=== PATIENT | female | born 1945 | race Caucasian/White ===

== ENCOUNTER 2020-07-02 21:45 | Inpatient (IN) | payer OTHER, SELFPAY ==
[2020-07-02] VITALS (14 sets, daily range): BP systolic 143–170; BP diastolic 32–55; PULSE 74–89; RESP 13–19; TEMP 36.8; O2SAT 96–100
--- NOTE | 2020-07-02 22:00 | RT.EKG_ITS ---
APPROVED REPORT Exam: Resting ECG Reason for Exam: weakness Patient Location: E HR:77 bpm ECG Measurements Heart Rate 77 AXIS DE 62 P 0 QRSd 98 QRS -25 QT 436 T 27 QTc 495 Conclusion Sinus rhythm...normal P axis, V-rate 60- 99
[2020-07-02 22:23] LABS: Abs Immature Grans 0.04 10^3/uL (0.0-0.06); Absolute Basophil Count 0.03 10^3/uL (0.0-0.2); Absolute Lymphocyte Count 1.29 10^3/uL (1.2-3.4); Absolute Neutrophil Count 3.92 10^3/uL (1.2-6.7); Basophils % 0.5; Eosinophils % 1.7; Immature Grans % 0.7; Lymphocytes % 21.6; MCH 20.3 pg (27.0-33.0); MCV 75.4 fL (80-95); MPV 9.8 fL (8.0-11.0); Neutrophils % 65.5; Nucleated RBC 1 %; Platelet Count 273 10^3/uL (130-400); RBC 2.36 10^6/uL (3.93-5.22); RDW 17.9 % (11.7-14.6); RDW-SD 48.5 fL; WBC 5.98 10^3/uL (4.4-10.8)
[2020-07-02 22:41] LABS: Prothrombin Time 10.2 sec (9.3-11.0)
[2020-07-02 22:44] LABS: ALT 15 U/L (14-59); AST 22 U/L (15-37); Albumin 3.5 g/dL (3.4-5.0); Alkaline Phosphatase 58 U/L (46-116); BUN 14 mg/dL (7-18); Bilirubin, Total 0.3 mg/dL (0.2-1.0); CREATININE 0.9 mg/dL (0.55-1.02); Calcium 8.9 mg/dL (8.5-10.1); Chloride 100 mmol/L (98-107); Glucose 104 mg/dL (74-106); Potassium 3.6 mmol/L (3.5-5.1); Sodium 135 mmol/L (136-145); Total Protein 7.6 g/dL (6.4-8.2); Troponin I < 0.05 ng/mL (<0.06)
[2020-07-02 22:45] LABS: HGB 4.8 g/dL (11.2-15.7)
[2020-07-02 22:46] LABS: HCT 17.8 % (36.0-46.0)
[2020-07-02 22:47] LABS: Anisocytosis 3+; Diff Comment RBC Morph Reviewed; Hypochromasia 3+; Microcytosis 2+
--- NOTE | 2020-07-02 23:01 | ED.GENADUL_ITS ---
Discharge Plan Disposition Patient Disposition: [facility] INPATIENT Condition: Serious Discharge Details Clinical Impression: CVA (cerebral vascular accident), Anemia Admit Date/Time: 07/03/20 00:50 Admit Provider: Mark Anand Attending Provider: Mark Anand Primary Care Provider: Neli,Local ED Provider: Chaim Barboza Discharge Data Discharge Date/Time-TO BE ENTERED AT DEPARTURE: 07/03/20 02:00 Medical Decision Making <Forest Francisco MD - Last Filed: 07/07/20 22:28> 2315 -- 75-year-old female with history of TIA, anemia from vitamin B12 deficiency in the past, here today with 2 to 3 days of worsening left upper extremity weakness with now severe paralysis and left upper extremity as well as mild left facial weakness. Patient also with diminished pulses on the right compared to left with significantly lower blood pressure right compared to left arm. Patient found to be severely anemic on routine labs by PCP. Consider aortic dissection versus CVA versus symptomatic anemia versus other. Plan to obtain stat CT of the head, CTA of the brain, neck and thorax/abdomen. Screening ECG was reviewed and interpreted by me: Please see report. Normal sinus 77 bpm, no STEMI. --Labs reviewed and hemoglobin is 4.8. I will give 2 units of PRBCs. Patient provided informed consent to blood transfusion 2348 -- Rectal exam performed and heme negative. Lab Data Lab results reviewed: Yes I reviewed the patient's lab results. Labs: Laboratory Tests Range/Units 07/02/20 07/02/20 07/02/20 22:10 22:10 22:10 WBC (4.4-10.8) 10^3/uL 5.98 RBC (3.93-5.22) 10^6/uL 2.36 L Hgb (11.2-15.7) g/dL 4.8 L* Hct (36.0-46.0) % 17.8 L* MCV (80-95) fL 75.4 L MCH (27.0-33.0) pg 20.3 L MCHC (32.0-36.0) % 27.0 L RDW (11.7-14.6) % 17.9 H Plt Count (130-400) 10^3/uL 273 MPV (8.0-11.0) fL 9.8 Immature Gran % 0.7 Neutrophils % 65.5 Lymphocytes % 21.6 Monocytes % 10.0 Eosinophils % 1.7 Basophils % 0.5 Nucleated RBC % % 1 Absolute Neutrophils (1.2-6.7) 10^3/uL 3.92 Absolute Lymphocytes (1.2-3.4) 10^3/uL 1.29 Absolute Monocytes (0.1-0.8) 10^3/uL 0.60 Absolute Eosinophils (0.0-0.7) 10^3/uL 0.10 Absolute Basophils (0.0-0.2) 10^3/uL 0.03 RBC Morphology See below Hypochromasia 3+ Anisocytosis 3+ Microcytosis 2+ PT (9.3-11.0) sec 10.2 INR (0.9-1.1) 1.0 Sodium (136-145) mmol/L 135 L Potassium (3.5-5.1) mmol/L 3.6 Chloride (98-107) mmol/L 100 Carbon Dioxide (21.0-32.0) mmol/L 22.0 Anion Gap (3-11) mmol/L 13.0 H BUN (7-18) mg/dL 14 Creatinine (0.55-1.02) mg/dL 0.9 Estimated GFR/1.73 m2 (mL/min/1.73m2) >= 60.00 Glucose (74-106) mg/dL 104 Calcium (8.5-10.1) mg/dL 8.9 Total Bilirubin (0.2-1.0) mg/dL 0.3 AST (15-37) U/L 22 ALT (14-59) U/L 15 Alkaline Phosphatase (46-116) U/L 58 Troponin I (<0.06) ng/mL < 0.05 Total Protein (6.4-8.2) g/dL 7.6 Albumin (3.4-5.0) g/dL 3.5 Patient ABO/Rh Antibody Screen Crossmatch Range/Units 07/02/20 22:10 WBC (4.4-10.8) 10^3/uL RBC (3.93-5.22) 10^6/uL Hgb (11.2-15.7) g/dL Hct (36.0-46.0) % MCV (80-95) fL MCH (27.0-33.0) pg MCHC (32.0-36.0) % RDW (11.7-14.6) % Plt Count (130-400) 10^3/uL MPV (8.0-11.0) fL Immature Gran % Neutrophils % Lymphocytes % Monocytes % Eosinophils % Basophils % Nucleated RBC % % Absolute Neutrophils (1.2-6.7) 10^3/uL Absolute Lymphocytes (1.2-3.4) 10^3/uL Absolute Monocytes (0.1-0.8) 10^3/uL Absolute Eosinophils (0.0-0.7) 10^3/uL Absolute Basophils (0.0-0.2) 10^3/uL RBC Morphology Hypochromasia Anisocytosis Microcytosis PT (9.3-11.0) sec INR (0.9-1.1) Sodium (136-145) mmol/L Potassium (3.5-5.1) mmol/L Chloride (98-107) mmol/L Carbon Dioxide (21.0-32.0) mmol/L Anion Gap (3-11) mmol/L BUN (7-18) mg/dL Creatinine (0.55-1.02) mg/dL Estimated GFR/1.73 m2 (mL/min/1.73m2) Glucose (74-106) mg/dL Calcium (8.5-10.1) mg/dL Total Bilirubin (0.2-1.0) mg/dL AST (15-37) U/L ALT (14-59) U/L Alkaline Phosphatase (46-116) U/L Troponin I (<0.06) ng/mL Total Protein (6.4-8.2) g/dL Albumin (3.4-5.0) g/dL Patient ABO/Rh A Positive Antibody Screen Negative Crossmatch See Detail <Chaim Barboza MD - Last Filed: 07/03/20 01:01> Patient signed out to me pending read of CT scan. She had presented with 2 to 3-day history of left upper extremity neurologic changes as well as hemoglobin found to be 4 today by PCP. Hemoglobin confirmed to be low and RBCs ordered. First unit is running currently. CT scan of the head shows evidence of acute infarct right occipital and right parietal lobe. CTA head and neck negative for any large vessel occlusion or dissection. CT chest abdomen negative for PE or dissection. Significant and at times occlusive plaque in various vessels likely accounting for pulse discrepancy in the upper extremities. Case discussed with hospitalist, Dr. Anand. Since no evidence of active bleeding and per Dr. Francisco negative Hemoccult on the stool, will give aspirin to treat for she acute stroke. Discussed CODE STATUS with patient and confirmed full code. Lab Data Lab results reviewed: Yes I reviewed the patient's lab results. HPI <Forest Francisco MD - Last Filed: 07/07/20 22:28> General Mode of arrival: ambulatory . Date/Time Provider Initiated Documentation: 07/02/20 21:46 . Limitations to Documentation: no limitations . Information obtained by: patient . HPI Narrative: 75-year-old female with prior history of TIA, hypertension, tobacco use disorder, anemia due to vitamin B12 deficiency in the past, peripheral vascular disease, presents today at the prompting of her primary care physician for low hemoglobin and new weakness of her left upper extremity. Patient notes that she presented to her primary care physician office today for checkup but she was concerned with weakness in her arm. She states she has had worsening weakness in her left arm over the past 2 to 3 days. Weakness is now severe and constant with no modifiers. She has associated numbness in the left arm as well patient denies headache. She denies any other weakness. Regarding her anemia, routine labs were checked today and patient was noted to have a hemoglobin of 4, it was not clear to the primary care physician as to the etiology for anemia. Related Data Home Medications Medication Instructions Recorded Confirmed budesonide 3 mg PO DAILY 07/02/20 07/02/20 diphenhydramine HCl [Benadryl] 25 mg PO DAILY 07/02/20 07/02/20 cyanocobalamin (vitamin B-12) 1,000 mcg PO DAILY 07/03/20 07/03/20 [Vitamin B-12] Allergies Allergy/AdvReac Type Severity Reaction Status Date / Time Penicillins Allergy Intermediate Swelling/Ed Unverified 07/02/20 22:06 tino Sulfa (Sulfonamide Allergy Intermediate Swelling/Ed Unverified 07/02/20 22:06 Antibiotics) tino doxycycline Allergy Mild Other (See Unverified 07/02/20 22:06 Comment) General Stated Complaint: Vascular CHERRI: 2 Review of Systems <Forest Francisco MD - Last Filed: 07/07/20 22:28> All systems reviewed & are unremarkable except as noted in HPI and below Constitutional Constitutional: Denies fever(s) and Reports lethargy Cardiovascular Cardiovascular: Denies chest pain Musculoskeletal Musculoskeletal: Reports back pain (Patient notes chronic pain across her back that she attributes to arthritis) PFSH <Forest Francisco MD - Last Filed: 07/07/20 22:28> Medical History (Updated 07/03/20 @ 18:50 by Eileen Grubbs MD) Colitis Smoker TIA (transient ischemic attack) Social History (Updated 07/03/20 @ 07:09 by Mark Anand) Smoking/Tobacco Use Status: Current every day Tobacco Type: cigarettes Smoking risk assessment performed?: Yes Alcohol Intake: current Alcohol Intake frequency: a few times a month Substance use type: marijuana Details: CBD, THC oil Do you feel safe at home: Yes Additional Social history: Lives [facility]) and daughter's Exam <Forest Francisco MD - Last Filed: 07/07/20 22:28> Const General: cooperative and no acute distress HENMT Head: normocephalic and atraumatic Mouth: moist mucous membranes Eyes Conjunctivae: normal conjunctivae Sclera: normal sclerae EOM: EOM intact bilaterally Neck Neck: trachea midline and supple Resp Auscultation: clear to auscultation bilaterally, no rales, no rhonchi and no wheezes Cardio Rate: regular rate and not tachycardic Rhythm: regular rhythm Pulses: radial pulses present on the right (trace) and on the left 2+ GI Palpation: soft, not firm, no guarding, no masses, not rigid and nontender Skin General skin exam: no rashes or lesions noted Neuro General: patient alert, patient awake and patient oriented x3 Cranial Nerves: PERRL, accommodation normal, EOM intact bilaterally, no nystagmus, facial strength abnormal, tongue midline, able to elevate shoulders bilaterally and symmetric palate elevation Cognition: normal cognition Speech: speech normal Motor: other (0/5 strength left upper extremity, 5/5 other ext) Sensory Exam: upper extremity (Patient has diminished sensation left upper extremity compared to right) Extrem General: no edema Psych Appearance: grossly normal Mental Status: mental status grossly normal Speech and Movement: speech and movement normal Course <Forest Francisco MD - Last Filed: 07/07/20 22:28> Vital Signs Vital signs: Vital Signs Temperature 36.8 C 07/02/20 21:55 Pulse 79 07/02/20 21:55 Respiratory Rate 16 07/02/20 21:55 Blood Pressure 170/49 H 07/02/20 21:55 Temperature 36.8 C 07/02/20 21:55 Pulse 79 07/02/20 21:55 Respiratory Rate 16 07/02/20 22:02 Respiratory Effort Non-Labored 07/02/20 22:02 Respiratory Depth Normal 07/02/20 22:02 Respiratory Pattern Normal 07/02/20 22:02 Blood Pressure 170/49 H 07/02/20 21:55 Blood Pressure Position Supine 07/02/20 21:55 Oxygen Delivery Method Room Air 07/02/20 21:55 Oxygen Flow Rate 0 07/02/20 21:55 Pain Level 8 07/02/20 21:55 Lab/Test Results Lab/Test Results: Laboratory Tests Range/Units 07/02/20 07/02/20 07/02/20 22:10 22:10 22:10 WBC (4.4-10.8) 10^3/uL 5.98 RBC (3.93-5.22) 10^6/uL 2.36 L Hgb (11.2-15.7) g/dL 4.8 L* Hct (36.0-46.0) % 17.8 L* MCV (80-95) fL 75.4 L MCH (27.0-33.0) pg 20.3 L MCHC (32.0-36.0) % 27.0 L RDW (11.7-14.6) % 17.9 H Plt Count (130-400) 10^3/uL 273 MPV (8.0-11.0) fL 9.8 Immature Gran % 0.7 Neutrophils % 65.5 Lymphocytes % 21.6 Monocytes % 10.0 Eosinophils % 1.7 Basophils % 0.5 Nucleated RBC % % 1 Absolute Neutrophils (1.2-6.7) 10^3/uL 3.92 Absolute Lymphocytes (1.2-3.4) 10^3/uL 1.29 Absolute Monocytes (0.1-0.8) 10^3/uL 0.60 Absolute Eosinophils (0.0-0.7) 10^3/uL 0.10 Absolute Basophils (0.0-0.2) 10^3/uL 0.03 RBC Morphology See below Hypochromasia 3+ Anisocytosis 3+ Microcytosis 2+ PT (9.3-11.0) sec 10.2 INR (0.9-1.1) 1.0 Sodium (136-145) mmol/L 135 L Potassium (3.5-5.1) mmol/L 3.6 Chloride (98-107) mmol/L 100 Carbon Dioxide (21.0-32.0) mmol/L 22.0 Anion Gap (3-11) mmol/L 13.0 H BUN (7-18) mg/dL 14 Creatinine (0.55-1.02) mg/dL 0.9 Estimated GFR/1.73 m2 (mL/min/1.73m2) >= 60.00 Glucose (74-106) mg/dL 104 Calcium (8.5-10.1) mg/dL 8.9 Total Bilirubin (0.2-1.0) mg/dL 0.3 AST (15-37) U/L 22 ALT (14-59) U/L 15 Alkaline Phosphatase (46-116) U/L 58 Troponin I (<0.06) ng/mL < 0.05 Total Protein (6.4-8.2) g/dL 7.6 Albumin (3.4-5.0) g/dL 3.5 Patient ABO/Rh Antibody Screen Range/Units 07/02/20 22:10 WBC (4.4-10.8) 10^3/uL RBC (3.93-5.22) 10^6/uL Hgb (11.2-15.7) g/dL Hct (36.0-46.0) % MCV (80-95) fL MCH (27.0-33.0) pg MCHC (32.0-36.0) % RDW (11.7-14.6) % Plt Count (130-400) 10^3/uL MPV (8.0-11.0) fL Immature Gran % Neutrophils % Lymphocytes % Monocytes % Eosinophils % Basophils % Nucleated RBC % % Absolute Neutrophils (1.2-6.7) 10^3/uL Absolute Lymphocytes (1.2-3.4) 10^3/uL Absolute Monocytes (0.1-0.8) 10^3/uL Absolute Eosinophils (0.0-0.7) 10^3/uL Absolute Basophils (0.0-0.2) 10^3/uL RBC Morphology Hypochromasia Anisocytosis Microcytosis PT (9.3-11.0) sec INR (0.9-1.1) Sodium (136-145) mmol/L Potassium (3.5-5.1) mmol/L Chloride (98-107) mmol/L Carbon Dioxide (21.0-32.0) mmol/L Anion Gap (3-11) mmol/L BUN (7-18) mg/dL Creatinine (0.55-1.02) mg/dL Estimated GFR/1.73 m2 (mL/min/1.73m2) Glucose (74-106) mg/dL Calcium (8.5-10.1) mg/dL Total Bilirubin (0.2-1.0) mg/dL AST (15-37) U/L ALT (14-59) U/L Alkaline Phosphatase (46-116) U/L Troponin I (<0.06) ng/mL Total Protein (6.4-8.2) g/dL Albumin (3.4-5.0) g/dL Patient ABO/Rh A Positive Antibody Screen Negative Critical Care Time <Forest Francisco MD - Last Filed: 07/07/20 22:28> Critical Care Time Critical Care Time: Yes Total Critical Care Time: 40 Attestation: I spent greater than minutes addressing this patient's immediate life threats. Please see MDM section of note. This time was spent engaged in work directly related to the patient's care, exclusive of separate procedures, and failure to initiate these interventions would have likely resulted in clinically significant or life threatening deterioration in the patient's condition. 40 Sign Out <Forest Francisco MD - Last Filed: 07/07/20 22:28> Sign Out Data: Sign Out Comment: Follow-up CT head, CTA brain, neck and thorax. Plan for admit vs transfer. Update nirachael. Last updated by Forest Francisco MD at 07/02/20 23:54
[2020-07-02] MEDS: Normal Saline Flush 10 ML SYR IVP (23:45)
[2020-07-02] MEDS: Normal Saline - Diluent 50 ML VIAL IV ×2 (23:46→23:48)
[2020-07-02] MEDS: Omnipaque 350 MG/ML 100 ML BTL IJ ×2 (23:46→23:47)
--- NOTE | 2020-07-02 23:53 | DI.CT_ITS ---
Exam(s) CT THORAX ABDOMEN CTA EXAM: CT THORAX ABDOMEN CTA CLINICAL HISTORY: LUE weakness, hypotensive LUE, hypertensive LUE. TECHNIQUE: Imaging Protocol: Axial CT angiography was performed with multi-slice acquisition and m ulti-planar and/or 3D reconstructions. CONTRAST MATERIAL: Intravenous: Omnipaque 350 Contrast volume:100 ml Oral: no COMPARISON: CT CT BRAIN NECK CTA from 07/02/2020 FINDINGS: CHEST: Pulmonary Arteries: No evidence of filling defect to suggest pulmonary emboli. Tracheobronchial tree: Patent where visualized. Mediastinum and Sofia: No dominant adenopathy or fluid collection. Pulmonary parenchyma: No consolidation or dominant measurable mass. Mild multifocal bilateral upper l obe hazy opacities, question pneumonitis. Pleura: No effusion or pneumothorax. Heart: The heart is not dilated. Moderate to severe coronary artery calcifications are seen. Aorta: Thoracic aorta non-dilated. Atherosclerotic changes calcification at the origin of brachioce phalic and left common carotid artery. Bones: Degenerative changes ABDOMEN: Celiac axis/mesenteric arteries: No evidence of occlusion. Mild narrowing origin of celiac artery. Se nita calcification at the origin of the SMA causing severe proximal narrowing. Renal Arteries: No evidence of occlusion. Mild narrowing proximal right renal artery. Calcification o f the proximal left renal artery causing severe narrowing over a 1.3 centimeter segment. There is a s niecy renal artery perfusing each kidney. Aorta: No evidence of occlusion or significant stenosis. No aneurysm or dissection. Severe atheroscl erotic changes throughout. Iliac arteries: The proximal portions of the common iliac arteries are included on the scan. There i s heavy calcification and severe luminal narrowing proximally. There is question of occlusion of the right common iliac artery. Liver: Normal density. No measurable mass. Portal, Superior Mesenteric, and Splenic Veins: Unremarkable. Gallbladder and Biliary Tract: No radiodense calculus or dilation. Pancreas: Normal density, no abnormal calcifications or inflammatory process. Spleen: Normal. Adrenals: No masses seen. Kidneys: Normal size, contour and axis. No radiodense stones or obstructive uropathy. No masses seen. Retroaortic left renal vein. Bowel: No obstruction or bowel wall thickening. Appendix is unremarkable. Cecum is positioned in the right upper quadrant suggesting mobile mesentery. Peritoneal Cavity: No ascites, collection or mesenteric inflammatory response. Lymph Nodes: Within normal limits. Bones: No fracture. Degenerative disc changes throughout. Soft Tissues: 2.1 x 2.6 centimeter cyst in the subcutaneous fat of the left upper quadrant abdominal wall may represent a sebaceous cyst. IMPRESSION: Severe atherosclerotic changes, greater in the abdomen. There is probable occlusion of the right comm on iliac artery. 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 RADIATION DOSE DELIVERED: 892.36mGy.cm Total DLP DATA REPOSITORY: All CT scans at this facility are submitted to the National Radiology Data Registry (NRDR) Dose Index Registry (DIR) with the [employer] (ACR). RADIATION OPTIMIZATION: All CT scans at this facility use at least one of these dose optimization te chniques: automated exposure control; mA and/or kV adjustment per patient size (includes targeted exa ms where dose is matched to clinical indication); or iterative reconstruction.
--- NOTE | 2020-07-02 23:53 | DI.CT_ITS ---
Exam(s) CT BRAIN NECK CTA EXAM: CT BRAIN NECK CTA CLINICAL HISTORY: left arm and face weakness 2-3 days. TECHNIQUE: Imaging Protocol: Axial CT angiography was performed with multi-slice acquisition and mu lti-planar and/or 3D reconstructions. CONTRAST MATERIAL: Intravenous: Omnipaque 350 Contrast volume:85 ml COMPARISON: No exams were available for comparison FINDINGS: Ventricles and Extra axial spaces: Normal in size and morphology for the patient's age. Hemorrhage: None. Cerebral parenchyma: Patchy areas of decreased attenuation are seen in the right frontal lobe and rig ht occipital lobe. There is also question of patchy areas in the right parietal lobe superiorly. Mild atrophy. Mild white matter changes consistent with small vessel disease. Midline shift: None. Brainstem/Cerebellum: Normal. Calvarium: Normal. Visualized Paranasal sinuses/Mastoids: Clear. Soft Tissues: Unremarkable. Enhancement: Normal pattern. No enhancing mass. No abnormal dural enhancement. CTA Brain W: Internal Carotid Arteries: Petrous: Normal. Cavernous: Normal. Cerebral: Normal. Middle Cerebral Arteries: Right: No aneurysm, occlusion or significant stenosis. Left: No aneurysm, occlusion or significant stenosis. Anterior Cerebral Arteries: Right: No aneurysm, occlusion or significant stenosis. Left: No aneurysm, occlusion or significant stenosis. Posterior cerebral Arteries: Right: No aneurysm, occlusion or significant stenosis. Hypoplastic P1 segment consistent with persis tent circulation. Left: No aneurysm, occlusion or significant stenosis. Hypoplastic P1 segment consistent with persi stent circulation. Vertebral Arteries: Right: No aneurysm, occlusion or significant stenosis. Left: No aneurysm, occlusion or significant stenosis. Basilar Artery: No aneurysm, occlusion or significant stenosis. Veins: Patent. CTA Neck W: Common Carotid: Right: No aneurysm, occlusion or significant stenosis. Left: No aneurysm, occlusion or significant stenosis. External Carotid: Right: No aneurysm, occlusion or significant stenosis. Left: No aneurysm, occlusion or significant stenosis. Internal Carotid: Right: No aneurysm, occlusion or significant stenosis. Calcifications proximally. Left: No aneurysm, occlusion or dissection. Proximal calcific plaque causing mild stenosis, less than 50 percent. Vertebral Artery: Right: No aneurysm, occlusion or significant stenosis. Left: No aneurysm, occlusion or significant stenosis. Lung Apices: Normal. Bones: Degenerative changes greatest at C5-6 and C6-7. Soft Tissues: Unremarkable. IMPRESSION: 1. Normal CTA examination of the [place]. Anatomic variant of bilateral hypoplastic P1 segme nts of the posterior cerebral arteries. 2. Head CT shows patchy areas of decreased attenuation in the right frontal and occipital regions whi ch may represent acute infarct.. 3. Calcific plaque at the proximal left internal carotid artery causing less than 50 percent stenosis . No evidence of dissection. RADIATION DOSE DELIVERED: 2,070.57mGy.cm Total DLP DATA REPOSITORY: All CT scans at this facility are submitted to the National Radiology Data Registry (NRDR) Dose Index Registry (DIR) with the [employer] (ACR). RADIATION OPTIMIZATION: All CT scans at this facility use at least one of these dose optimization te chniques: automated exposure control; mA and/or kV adjustment per patient size (includes targeted exa ms where dose is matched to clinical indication); or iterative reconstruction.
[2020-07-03] VITALS (35 sets, daily range): BP systolic 81–180; BP diastolic 32–82; PULSE 57–93; RESP 13–22; TEMP 36.4–37.2; O2SAT 96–100
--- NOTE | 2020-07-03 | DI.MRI_ITS ---
Exam(s) MR BRAIN WO EXAM: MR BRAIN WO CLINICAL HISTORY: acute left UE weakness 3 days ago, signs CVA on CT TECHNIQUE: Multiplanar multisequence MRI of the brain was performed. COMPARISON: CT CT BRAIN NECK CTA from 07/02/2020 FINDINGS: There are areas of restricted diffusion seen in the right frontal, temporoparietal parietal and occip ital sulci peripherally consistent with acute or subacute infarct. There is no significant mass effe ct. No hemorrhage is seen. There is mild underlying atrophy. The ventricles are normal in size. T he orbits, sinuses, mastoid air cells and pituitary are unremarkable. IMPRESSION: Findings consistent with acute to subacute infarcts peripherally in the right frontal, temporal parie shira and occipital lobes. DATA REPOSITORY:
--- NOTE | 2020-07-03 00:04 | NUR.NOTE ---
Nursing Note: patient nohelia Farrell reports patient takes 0.25 mL of CBD oil/day, THC candy 200 mg/day, and CBD+THC.
--- NOTE | 2020-07-03 00:07 | DI.VRAD_ITS ---
Addendum created by Remi Vu MD on 07/03/2020 12:11:11 AM EDT: ADDENDUM: Critical findings within the report were discussed with Dr. Barboza at 07/03/2020 12:10 AM EDT . Small area of loss of hardwick white matter differentiation also seen in right parietal cortex on series 3, images 43-45 likely additional foci of acute ischemic infarct. Initial report created on 07/03/2020 12:06:51 AM EDT: PROCEDURE INFORMATION: Exam: CT Angiography Head Without And With Contrast, Arteriography Exam date and time: 07/02/2020 10:25 PM Age: 75 years old Clinical indication: Patient HX: Left arm and face weakness x2-3 days TECHNIQUE: Imaging protocol: Computed tomographic angiography of the head without and with contrast. Exam focused on the arteries. 3D rendering (Not supervised by radiologist): MIP and/or 3D reconstructed images were created by the technologist. Radiation optimization: All CT scans at this facility use at least one of these dose optimization techniques: automated exposure control; mA and/or kV adjustment per patient size (includes targeted exams where dose is matched to clinical indication); or iterative reconstruction. Contrast material: [id number]; Contrast volume: 85 ml; Contrast route: INTRAVENOUS (IV); COMPARISON: No relevant prior studies available. FINDINGS: ANTERIOR CIRCULATION: Right internal carotid artery: Intracranial segment is patent with no significant stenosis or occlusion. No aneurysm. Right middle cerebral artery: No occlusion or significant stenosis. No aneurysm. Right anterior cerebral artery: No occlusion or significant stenosis. No aneurysm. Left internal carotid artery: Intracranial segment is patent with no significant stenosis. No aneurysm. Left middle cerebral artery: No occlusion or significant stenosis. No aneurysm. Left anterior cerebral artery: No occlusion or significant stenosis. No aneurysm. POSTERIOR CIRCULATION: Right vertebral artery: No occlusion or significant stenosis. No aneurysm. Left vertebral artery: No occlusion or significant stenosis. No aneurysm. Basilar artery: No occlusion or significant stenosis. No aneurysm. Right posterior cerebral artery: Patent right posterior communicating artery. Hypoplastic P1 segment of the right posterior cerebral artery, consistent with persistent circulation. No evidence of stenosis or occlusion in the right posterior cerebral artery. Left posterior cerebral artery: Patent left posterior communicating artery. Hypoplastic P1 segment of the left posterior cerebral artery, consistent with persistent circulation. No evidence of stenosis or occlusion in the left posterior cerebral artery. Veins: Visualized venous sinuses are patent with no evidence of thrombosis. The superior sagittal and inferior sagittal sinuses are unremarkable. Transverse sinuses and sagittal sinuses are unremarkable. HEAD: Brain: Loss of hardwick-white matter differentiation in right occipital lobe . There are areas of diminished density in the white matter bilaterally consistent with chronic small vessel ischemic changes. Cerebral ventricles: Normal. No ventriculomegaly. Bones/joints: Unremarkable. No acute fracture. Paranasal sinuses: See Veins finding. Mastoid air cells: Visualized mastoids are normal. No mastoid effusion. Soft tissues: No areas of abnormal enhancement after contrast administration. IMPRESSION: 1. Loss of hardwick-white matter differentiation in right occipital lobe . Finding is consistent with acute ischemic infarct. No evidence of hemorrhage. 2. No evidence of large vessel occlusion or significant stenosis. 3. Chronic ischemic changes bilaterally. PROCEDURE INFORMATION: Exam: CT Angiography Neck Without And With Contrast Exam date and time: 07/02/2020 10:25 PM Age: 75 years old Clinical indication: Patient HX: Left arm and face weakness x2-3 days TECHNIQUE: Imaging protocol: Computed tomographic angiography of the neck without and with contrast. 3D rendering (Not supervised by radiologist): MIP and/or 3D reconstructed images were created by the technologist. Radiation optimization: All CT scans at this facility use at least one of these dose optimization techniques: automated exposure control; mA and/or kV adjustment per patient size (includes targeted exams where dose is matched to clinical indication); or iterative reconstruction. Contrast material: [id number]; Contrast volume: 85 ml; Contrast route: INTRAVENOUS (IV); COMPARISON: No relevant prior studies available. FINDINGS: Right common carotid artery: No stenosis. No dissection or occlusion. Right internal carotid artery: Atherosclerotic calcifications are seen in right proximal ICA. No evidence of stenosis. Right external carotid artery: No occlusion or stenosis of the origin. Right vertebral artery: No stenosis. No dissection or occlusion. Left common carotid artery: No stenosis. No dissection or occlusion. Left internal carotid artery: Atherosclerotic disease with areas of stenosis in proximal left ICA. ICA lumen at the level of stenosis measures 4.7 mm. ICA lumen distally measures 7.2 mm. Left external carotid artery: No occlusion or stenosis of the origin. Left vertebral artery: No stenosis. No dissection or occlusion. Bones/joints: Degenerative changes in the spine. No evidence of fracture. Soft tissues: Normal. No significant soft tissue swelling. IMPRESSION: Findings as described above in the left internal carotid artery consistent with mild stenosis measuring less than 50%. REFERENCES: NASCET CRITERIA. The degree of internal carotid artery stenosis is based on NASCET criteria. Normal is no stenosis. Mild is less than 50% stenosis. Moderate is 50-69% stenosis. Severe is 70% to 99% stenosis. Total occlusion is no detectable patent lumen. Dictated and Authenticated by: Remi Vu MD. Ordering:SANDRO Garg MD
--- NOTE | 2020-07-03 00:38 | DI.VRAD_ITS ---
PROCEDURE INFORMATION: Exam: CTA Chest With Contrast Exam date and time: 07/02/2020 11:24 PM Age: 75 years old Clinical indication: Other: Extremity weakness; Patient HX: Lue weakness, hypotensive lue, hypertensive lue TECHNIQUE: Imaging protocol: Computed tomographic angiography of the chest with contrast. 3D rendering (Not supervised by radiologist): MIP and/or 3D reconstructed images were created by the technologist. Radiation optimization: All CT scans at this facility use at least one of these dose optimization techniques: automated exposure control; mA and/or kV adjustment per patient size (includes targeted exams where dose is matched to clinical indication); or iterative reconstruction. Contrast material: [id number]; Contrast volume: 100 ml; Contrast route: INTRAVENOUS (IV); COMPARISON: No relevant prior studies available. FINDINGS: Pulmonary arteries: No pulmonary embolism identified. Aorta: No thoracic aortic aneurysm or dissection. Prominent atherosclerotic calcification at the origins of the brachiocephalic artery and left common carotid artery. Lungs: Few scattered small hazy pulmonary densities. Small regions of acute pulmonary infection? No region of curtis alveolar consolidation. Pleural spaces: No pleural effusion or pneumothorax. Heart: Normal-sized heart. Lymph nodes: No pathologically enlarged mediastinal or hilar lymph nodes. Bones/joints: No acute fracture seen among the bones of the chest. Anterior osteophytes at several levels. Soft tissues: 10.0 cm x 1.5 cm subcutaneous but cutaneously based cyst-like lesion anterior to the body of the sternum, image 61 of series 10, not well characterized by the current exam but possibly a sebaceous cyst or trichilemmal cyst. IMPRESSION: 1. No thoracic aortic aneurysm or dissection. Prominent atherosclerotic calcification at the origins of the brachiocephalic artery and left common carotid artery, not well evaluated for associated luminal narrowing. 2. No pulmonary embolism identified. 3. Scattered small hazy pulmonary densities. Small regions of acute pulmonary infection could have this appearance although clinical correlation is recommended. No region of curtis alveolar consolidation. PROCEDURE INFORMATION: Exam: CT Angiography Abdomen With Contrast Exam date and time: 07/02/2020 11:24 PM Age: 75 years old Clinical indication: Other: Extremity weakness; Patient HX: Lue weakness, hypotensive lue, hypertensive lue TECHNIQUE: Imaging protocol: Computed tomographic angiography images of the abdomen with intravenous contrast material. 3D rendering (Not supervised by radiologist): MIP and/or 3D reconstructed images were created by the technologist. Radiation optimization: All CT scans at this facility use at least one of these dose optimization techniques: automated exposure control; mA and/or kV adjustment per patient size (includes targeted exams where dose is matched to clinical indication); or iterative reconstruction. Contrast material: [id number]; Contrast volume: 100 ml; Contrast route: INTRAVENOUS (IV); COMPARISON: No relevant prior studies available. FINDINGS: Aorta: No abdominal aortic aneurysm. Severe atherosclerotic calcification throughout the abdominal aorta and extending into the common iliac arteries. Celiac trunk and mesenteric arteries: Atherosclerotic calcification and plaque at the celiac artery origin with mild ostial narrowing. Severe atherosclerotic calcification at the superior mesenteric artery origin and in the proximal artery with an appearance suggesting severe proximal narrowing. Inferior mesenteric artery grossly patent through its visualized portion. Renal arteries: Atherosclerotic calcification in the proximal right renal artery with mild irregular narrowing. Atherosclerotic calcification and plaque in the proximal left renal artery with an appearance suggesting severe luminal narrowing over a 1.3 cm proximal segment, image 628 of series 8. Right iliac arteries: Severe atherosclerotic calcification and plaque or thrombus in the proximal right common iliac artery, apparently occluded or subtotally occluded, images 79-83 of series 4. Left iliac arteries: Bulky atherosclerotic calcification almost completely obscuring the lumen of the proximal left common iliac artery with an appearance suggesting severe narrowing or focal occlusion. Other veins: Retroaortic left renal vein, anatomic variant. Liver: Normal appearing liver. Gallbladder and bile ducts: Normal appearing gallbladder. No calcified gallstones. No biliary dilatation. Pancreas: Normal appearing pancreas. Spleen: Normal appearing spleen. Adrenals: Normal appearing adrenal glands. Kidneys and ureters: Normal appearing kidneys. No hydronephrosis. Stomach and bowel: No oral contrast. Stomach partially distended with fluid and ingested material. No dilated small bowel loops in the upper abdomen. Pelvis not imaged. Appendix: Normal appendix, unusually located along the inferior liver margin. Lymph nodes: No pathologically enlarged lymph nodes seen. Intraperitoneal space: Cecum located in the right upper quadrant suggesting free mobility on an independent mesentery. No evidence of diverticulitis or colitis through the visualized portion of the colon. No ascites or free air seen in the upper abdomen. Bones/joints: Fracture seen among the bones of the abdomen. Spinal degenerative change with discogenic degeneration, vacuum disc deformities, and anterior osteophytes several levels. Soft tissues: 2.1 cm x 2.6 cm hypoattenuating cyst-like subcutaneous but cutaneously based cyst-like lesion in the left upper quadrant anterior abdominal wall, image 54 of series 4, not definitively evaluated but possibly a sebaceous cyst or trichilemmal cyst. IMPRESSION: 1. Atherosclerotic calcification with plaque or thrombus completely obscuring the proximal right common iliac artery lumen suggesting complete occlusion or subtotal occlusion. Downstream vessel not imaged. 2. Atherosclerotic calcification almost completely obscuring the lumen of the proximal left common iliac artery suspicious for severe focal narrowing or focal occlusion. Visualized downstream left common iliac artery patent and enhancing.0 the 3. Severe atherosclerotic calcification at the superior mesenteric artery origin and in the proximal artery with an appearance suggesting severe proximal narrowing. Downstream SMA segment patent and enhancing. 4. Atherosclerotic calcification and plaque in the proximal left renal artery with an appearance suggesting severe luminal narrowing over a 1.3 cm proximal segment. Downstream left renal artery patent and enhancing. Uniform renal parenchymal enhancement. Dictated and Authenticated by: Jae Naik MD. Ordering:SANDRO Garg MD
[2020-07-03 00:46] LABS: Bilirubin Negative (Negative); Blood Negative (Negative); Clarity Clear (Clear); Glucose Negative (Negative); Ketones Negative (Negative); Leukocyte Esterase Negative (Negative); Nitrite Negative (Negative); Urobilinogen 0.2 EU/dL (Up TO 0.2)
[2020-07-03 00:53] LABS: Source Nasal/Nares
[2020-07-03] MEDS: Aspirin 81 MG CHEW 324 MG CH (01:00)
--- NOTE | 2020-07-03 05:39 | HPE_ITS ---
Date of service: 07/03/20 Time of Service: 06:31 Assessment and Plan Assessment and plan (1) CVA (cerebral vascular accident): Status: Chronic Assessment and plan: Timing of CVA difficult to determine with vague history, but appears it evolved over the past week or so. Case discussed with Dr Barboza and we decided to treat with ASA despite anemia, given negative hemocult. Will defer clopidogrel for now. Start high intensity statin therapy, getting lipids and A1c to assess vascular risk. (2) Anemia: Status: Chronic Assessment and plan: Microcyctic, likely reflecting iron deficiency rela ailin to chronic blood loss given minimal to no symptoms and negative hemocult. S/p 2 units and hgb up appropriately above 7%. Monitor for now. iron studies and B12 sent. (3) Peripheral arterial disease: Status: Acute Assessment and plan: Severe, but no critical ischemia. Use BP on arm with higher BP as this reflects true systemic BP. Treat vascular disease medically starting with ASA and statin as above. (4) Smoker: Status: Chronic Assessment and plan: contemplative. Did not respond well to verenicline. Try nicotrol. (5) Colitis: Status: Chronic Assessment and plan: not active clinically, continue budesonide. this puts her at high risk of colon cancer. Should get colonoscopy, but without active bleed it may make sense to wait 3 mo. (6) DVT prophylaxis: Status: Acute Assessment and plan: TEDS/SCDs given profound anemia. (7) Discharge planning issues: Status: Acute Assessment and plan: PT/OT ordered. History of Present Illness History of Present Illness Chief Complaint: anemia, left sided weakness Narrative: 75 yo smoker with history of colitis who was sent to the emergency room after labs with her PCP noted severe anemia. She had also had weakness in her left hand that is new. The history in the emergency room says this had been present for 2-3 days, but Hyun tells me that she has had weakness in her left hand for at least a week. She is unable to pin down the exact onset. She states she occaisionally has headaches but doesn't remember a new or different headache recently, denies headache now. She states she didn't note any facial droop or change in speech or difficulty swallowing. Her vision hasn't changed as far as she can tell. She has still been able to walk. She is right handed. Regarding her anemia, she denies any bleeding including melena. She hasn't noted a change in bowel function. She has been eating normally. She endorses colitis but does not recognize the term ulcerative colitis. She has been taking her budesonide. She states her colitis was last active about a year ago. She has not felt lightheaded or felt palpitations. She does note she is more pale than usual and has been more short of breath over the past 6 months, but she didn't think much of this because she is a smoker. In the ED, CT chest to pelvis also done as BPs were significantly lower on left than right. Diffuse vascular disease noted. Review of Systems Constitutional Constitutional: Denies anorexia, Denies chills, Denies fever(s), Denies frequent falls and Denies headache(s) Eyes Eyes: Denies change in vision, Reports diplopia (she had this breifly a few days ago), Denies irritation, Denies loss of vision and Denies eye pain ENT Ears, Nose, Mouth, and Throat: Denies dysphagia, Denies dizziness, Denies headache(s), Reports hoarseness (chronic), Denies nasal congestion, Denies nasal discharge and Denies sore throat Cardiovascular Cardiovascular: Denies chest pain, Denies palpitations, Denies dyspnea and Denies orthopnea Respiratory Respiratory: Denies cough, Denies excessive phlegm production, Denies dyspnea and Denies wheezing Gastrointestinal Gastrointestinal: Denies abdominal pain, Denies melena, Denies hematochezia, Denies constipation, Denies dysphagia, Denies heartburn, Denies diarrhea and Denies vomiting Genitourinary Genitourinary: Denies abnormal vaginal bleeding, Denies hematuria, Denies dysuria and Denies urinary incontinence Musculoskeletal Musculoskeletal: Denies arthralgias Integumentary/Breasts Skin/Breast: Denies rash and Denies skin ulcer Neurologic Neurologic: Denies abnormal speech, Reports confusion, Denies dizziness, Denies frequent falls, Denies headache(s), Reports localized weakness, Denies loss of vision, Denies sensory deficit and Denies tremor(s) Psychiatric Psychiatric: Reports confusion, Denies mood swings and Denies panic attacks Endocrine Endocrine: Denies palpitations Hematologic/Lymphatic Hematologic/Lymphatic: Denies easy bleeding Allergic/Immunologic Allergic/Immunologic: Denies wheezing [facility] Medical History (Updated 05/14/21 @ 07:23 by Mark Anand) Colitis Smoker TIA (transient ischemic attack) Social History (Updated 07/03/20 @ 07:09 by Mark Anand) Smoking/Tobacco Use Status: Current every day Tobacco Type: cigarettes Smoking risk assessment performed?: Yes Alcohol Intake: current Alcohol Intake frequency: a few times a month Substance use type: marijuana Details: CBD, THC oil Do you feel safe at home: Yes Additional Social history: Lives between [address] ([facility]) and daughter's Meds Allergies and Home Medications Allergies Allergy/AdvReac Type Severity Reaction Status Date / Time Penicillins Allergy Intermediate Swelling/Ed Unverified 07/02/20 22:06 tino Sulfa (Sulfonamide Allergy Intermediate Swelling/Ed Unverified 07/02/20 22:06 Antibiotics) tino doxycycline Allergy Mild Other (See Unverified 07/02/20 22:06 Comment) Home Medications Medication Instructions Recorded Confirmed Type budesonide 3 mg PO DAILY 07/02/20 07/02/20 History diphenhydramine HCl [Benadryl] 25 mg PO DAILY 07/02/20 07/02/20 History cyanocobalamin (vitamin B-12) 1,000 mcg PO DAILY 07/03/20 07/03/20 History [Vitamin B-12] Exam Narrative Exam Narrative: GEN: Alert, oriented to time and self, gives place as [place]. She is pleasent and cooperative, but very vague in giving history, speaks slowly and with a delay when questioned directly. No acute distress at rest. HEENT: Head atraumatic. Conjunctiva clear, no icterus. PEERL, EOMI. no rhinorrhea. MMM, OP benign. slight left facial droop. Neck is supple with no masses or lymphadenopathy, trachea midline. no carotid bruits LUNGS: CTAB with normal effort CV: RRR with no murmurs, gallops, or rubs. left sided pulses and BPs deminished vs right. ABD: +BS, soft, NT/ND EXT: no cyanosis, clubbing, or edema MSK: No joint redness or swelling NEURO: CN 2-12 grossly intact x mild weakness left face sparing forehead, defect in left visual field to confrontation. Left arm/hand strength 3/5, leg 4/5 (much more subtle), normal right. coordination grossly normal. Speech slow as above, raspy but intelligble. no tremor. DTRs intact felipe, no hyperreflexia. SKIN: No rashs or open wounds. PSYCH: normal mood and affect Results Imaging Abdomen CT scan report/results: report reviewed CT scan - chest: report reviewed Imaging Studies: CT w/wo Head/neck: 1. Loss of hardwick-white matter differentiation in right occipital lobe . Finding is consistent with acute ischemic infarct. No evidence of hemorrhage. 2. No evidence of large vessel occlusion or significant stenosis. 3. Chronic ischemic changes bilaterally. Findings in the left internal carotid artery consistent with mild stenosis measuring less than 50%. CTA Chest: 1. No thoracic aortic aneurysm or dissection. Prominent atherosclerotic calcification at the origins of the brachiocephalic artery and left common carotid artery, not well evaluated for associated luminal narrowing. 2. No pulmonary embolism identified. 3. Scattered small hazy pulmonary densities. Small regions of acute pulmonary infection could have this appearance although clinical correlation is recommended. No region of curtis alveolar consolidation. CTA Abdomen/Pelvis: 1. Atherosclerotic calcification with plaque or thrombus completely obscuring the proximal right common iliac artery lumen suggesting complete occlusion or subtotal occlusion. Downstream vessel not imaged. 2. Atherosclerotic calcification almost completely obscuring the lumen of the proximal left common iliac artery suspicious for severe focal narrowing or focal occlusion. Visualized downstream left common iliac artery patent and enhancing.0 the 3. Severe atherosclerotic calcification at the superior mesenteric artery origin and in the proximal artery with an appearance suggesting severe proximal narrowing. Downstream SMA segment patent and enhancing. 4. Atherosclerotic calcification and plaque in the proximal left renal artery with an appearance suggesting severe luminal narrowing over a 1.3 cm proximal segment. Downstream left renal artery patent and enhancing. Uniform renal parenchymal enhancement. Labs Result diagrams: 07/03/20 06:10 07/02/20 22:10 Labs: Laboratory Results - last 24 hr 07/02/20 07/02/20 07/02/20 22:10 22:10 22:10 WBC 5.98 RBC 2.36 L Hgb 4.8 L* Hct 17.8 L* MCV 75.4 L MCH 20.3 L MCHC 27.0 L RDW 17.9 H Plt Count 273 MPV 9.8 Immature Gran % 0.7 Neutrophils % 65.5 Lymphocytes % 21.6 Monocytes % 10.0 Eosinophils % 1.7 Basophils % 0.5 Nucleated RBC % 1 Absolute Neutrophils 3.92 Absolute Lymphocytes 1.29 Absolute Monocytes 0.60 Absolute Eosinophils 0.10 Absolute Basophils 0.03 RBC Morphology See below Hypochromasia 3+ Anisocytosis 3+ Microcytosis 2+ PT 10.2 INR 1.0 Sodium 135 L Potassium 3.6 Chloride 100 Carbon Dioxide 22.0 Anion Gap 13.0 H BUN 14 Creatinine 0.9 Estimated GFR/1.73 m2 >= 60.00 Glucose 104 Calcium 8.9 Total Bilirubin 0.3 AST 22 ALT 15 Alkaline Phosphatase 58 Troponin I < 0.05 Total Protein 7.6 Albumin 3.5 Urine Color Urine Clarity Urine pH Ur Specific [place] Urine Protein Urine Ketones Urine Blood Urine Nitrite Urine Bilirubin Urine Urobilinogen Ur Leukocyte Esterase Urine Glucose COVID-19 Source Patient ABO/Rh Antibody Screen Crossmatch 07/02/20 07/03/20 07/03/20 22:10 00:34 00:50 WBC RBC Hgb Hct MCV MCH MCHC RDW Plt Count MPV Immature Gran % Neutrophils % Lymphocytes % Monocytes % Eosinophils % Basophils % Nucleated RBC % Absolute Neutrophils Absolute Lymphocytes Absolute Monocytes Absolute Eosinophils Absolute Basophils RBC Morphology Hypochromasia Anisocytosis Microcytosis PT INR Sodium Potassium Chloride Carbon Dioxide Anion Gap BUN Creatinine Estimated GFR/1.73 m2 Glucose Calcium Total Bilirubin AST ALT Alkaline Phosphatase Troponin I Total Protein Albumin Urine Color Yellow Urine Clarity Clear Urine pH 6.0 Ur Specific [place] 1.010 Urine Protein Negative Urine Ketones Negative Urine Blood Negative Urine Nitrite Negative Urine Bilirubin Negative Urine Urobilinogen 0.2 Ur Leukocyte Esterase Negative Urine Glucose Negative COVID-19 Source Nasal/nares Patient ABO/Rh A Positive Antibody Screen Negative Crossmatch See Detail Last Vital Signs Temp 37.2 C 07/03/20 03:11 Pulse 67 07/03/20 03:11 Resp 17 07/03/20 03:11 BP 140/80 07/03/20 03:23 Pulse Ox 96 07/03/20 03:11 COVID-19 Screening Have you, or household traveled for leisure in last 14 days?: Yes Had IN PERSON contact w/suspected or confirmed C-19 person: No
[2020-07-03 06:46] LABS: HCT 24.3 % (36.0-46.0); HGB 7.1 g/dL (11.2-15.7)
[2020-07-03 07:01] LABS: Hemoglobin A1C 5.3 % (<5.7)
[2020-07-03 07:09] LABS: Iron 52 ug/dL (50-170); Total Iron Binding Capacity 456 ug/dL (250-450); Transferrin Sat 11 % (15-50)
[2020-07-03 07:25] LABS: Calculated LDL 71 mg/dL (<100); Cholesterol 115 mg/dL (<200); HDL Cholesterol 34 mg/dL (40-60); Triglyceride 51 mg/dL (<150); Vitamin B12 1681 pg/mL (193-986)
[2020-07-03] MEDS: Aspirin 81 MG CHEW PO (08:07)
[2020-07-03] MEDS: Cyanocobalamin 500 MCG TAB 1000 MCG PO (08:07)
[2020-07-03] MEDS: Atorvastatin 40 MG TAB 80 MG PO (08:07)
--- NOTE | 2020-07-03 09:17 | PT.INIE ---
Date of service: 07/03/20 Time of Service: 09:17 PT Notes Visit Reasons: CVA; ANEMIA Physical Therapy Inpatient Initial Evaluation Date: 07/03/2020 Referring Doctor: Mark Anand MD PT Orders: PT CONSULT: Safety consult for discharge. Acute CVA, left-sided weakness. Precautions: Fall. Standard. Activity as tolerated. Patient Profile/Admitting Diagnosis: Hyun is a 75-year-old female who presented to the ED on 07/02/2020 with 3 days worth of increasing weakness accompanied by facial weakness. Patient is diagnosed with cerebrovascular accident, anemia, peripheral arterial disease, tobacco use, and colitis. PMHX: Medical History?(Updated 07/03/20 @ 07:23 by Mark Anand) Colitis Smoker TIA (transient ischemic attack) Social History/Home Situation: Lives with niece in [place] in the summer and with daughter in [place] in the wintertime. Has 3 steps to enter with 1 rail for both residences in [place] and [place]. Independent with the single-point cane for all mobility ADL performance, independent with all other aspects of ADLs prior to admission. Still drives. Smokes 1 pack of cigarettes per day. Equipment Owned/DME: [facility] Subjective: Agreeable to PT consult. Indicated that she had 1 fall back in May and another one couple weeks after that while she was in [place]. Wondering if she will be able to go out of hospital premises so she can smoke a cigarette. Reports that typically her right leg feels heavy when she has had enough walking. States that she has no sensation from the L wrist down to her fingers. Objective: General Observation: Mild facial asymmetry seen. Left UE hypotonic. Telemetry monitoring in place. Mild facial asymmetry. No slurring of speech heard. Mental Status: Alert and oriented as to person, place, time, and purpose. Able to pay attention, focus, and respond appropriately. Pain: 0/10 ROM: Right Upper Extremity: Shoulder Flexion . Shoulder abduction WFL. Shoulder ER/IR WFL. Elbow flexion WFL. Forearm pronation/supination WFL. Wrist flexion WFL. Opening and closing of hand WFL. Left Upper Extremity: Shoulder Flexion up to 60 degrees. Shoulder abduction up to 50 degrees. Shoulder ER/IR up to 20 degrees. Elbow flexion up to 45 degrees. Forearm supination to neutral only, pronation unable. Wrist flexion absent. Opening and closing of hand absent. Right Lower Extremity: Hip flexion WFL. Hip abduction WFL. Hip ER/IR WFL. Knee flexion WFL. Knee extension. Ankle dorsiflexion/eversion WFL. Ankle plantarflexion/inversion WFL. Left Lower Extremity: Hip flexion WFL. Hip abduction WFL. Hip ER/IR WFL. Knee flexion WFL. Knee extension. Ankle dorsiflexion WFL. Ankle plantarflexion WFL. Strength: Right Upper Extremity: Shoulder flexors 4-/5. Shoulder abductors 4-/5. Shoulder ER 4-/5. Shoulder IR 4-/5. Forearm pronators 4/5. Forearm supinators 4/5. Elbow flexors 4/5. Elbow extensors 4/5. Office Helper Clerical strong. Left Upper Extremity: Shoulder flexors 3-/5. Shoulder abductors 3-/5. Shoulder ER 3-/5. Shoulder IR 3-/5. Forearm pronators 3-/5. Forearm supinators 1/5. Elbow flexors 3-/5. Elbow extensors 3-/5. Office Helper Clerical absent. Right Lower Extremity: Hip flexors 4-/5. Hip abductors 4-/5. Hip external rotators 4-/5. HIp internal rotators 4-/5. Knee flexors 5/5. Knee extensors 5/5. Ankle dorsiflexors/evertors 5/5. Ankle plantarflexors/invertors 5/5. Left Lower Extremity: Hip flexors 5/5. Hip abductors 5/5. Hip external rotators 5/5. HIp internal rotators 5/5. Knee flexors 4-/5. Knee extensors 4-/5. Ankle dorsiflexors/evertors 4-/5. Ankle plantarflexors/invertors 4-/5. Bed Mobility/Transfers: Rolling contact-guard assist Supine to sit contact-guard assist with HOB at 45 degrees Sit to supine contact-guard assist Sit to stand minimal assist Stand to sit contact-guard assist Bed to bedside commode contact-guard assist Bedside commode to bed contact-guard assist Gait: Distance of 50 feet +40 feet feet requiring contact-guard assist. Liss decreased. Step height decreased on the left side. Step length decreased on the left side. Increase trunk lean to the left and forward. Verbal cues were given for hemiwalker management and directional changes. Denies headache, dizziness, and chest pain throughout. Balance: Static Sitting: Normal Dynamic Sitting: Normal Static Standing: Fair Dynamic Standing: Fair Special Tests: Mobility Limitations Standardized Measure [facility] [place]-[facility] 6 clicks Basic Mobility Inpatient Short Form: Raw Score: 18 CMS Score: 47% deficit Informed Consent/Education: Patient is instructed in purpose of PT consult and plan of care. Agreeable to proceed with established PT POC to achieve personal goals. Assessment: Hyun demonstrates left sided hemiparesis with left upper extremity more affected than the left lower extremity affecting her ability to safely perform mobility ADL performance and will require hemiwalker and assistance of 1 caregiver to reduce fall risk. Sensation decreased from the wrist down to the fingers on the left side. Patient will benefit from [facility] facility placement for continued skilled physical therapy services in order to progress mobility level, strength, and balance in preparation for a safe discharge to home. Patient presents with clinical signs and symptoms consistent with current/admitting diagnoses that have resulted to mobility limitations, gait instability, generalized weakness, and impairment of motor control as demonstrated by the following impairment level findings: 1. Decreased strength to left UEs LE major muscle groups 2. Impaired standing balance 3. Impaired activity tolerance 4. Limitation of joint range of motion in left UEs/LE 5. Decreased grasp on the left side Impairments are contributing to the following functional limitations: 1. Dependent bed mobility skills 2. Increased dependence with transfers 3. Inability to safely ambulate without assistive device and physical assistance 4. Increase completion time for mobility ADL performance 5. Increased fall risk 6. Inability to negotiate steps alone safely 7. Inability to return to prior living environment at this time Patient is assessed as a 81463 moderate complexity based on the following: History: 75-year-old female with past medical history as indicated above Examination: Demonstrable impairment in strength, balance, and mobility level with underlying impairments and functional limitations as exhibited above as well as deficit score of 47% utilizing the [facility] Mobility Inpatient Short Form Presentation: Evolving 81533 moderate Decision Makin moderate complexity Goals: Goals X1 week 1. Supine-Sit independent 2. Sit-Supine independent 3. Sit-Stand independent 4. Stand-Sit independent 5. Bed-Chair independent 6. Chair-Bed independent 7. Independent gait on level surface with use of single-point cane for at least 300 feet without report of pain nor dyspnea 8. Independent stair negotiation while holding onto 1 rail for at least 3 steps without report of pain nor dyspnea 9. Independent with home exercise program 10. Good static and dynamic standing balance/tolerance Plan of Care/Treatment Plan: 1-2x/day, 7 days/week x 1 week. Plan of care has been reviewed with the CASH ACCOUNTANT providing the service under Physical Therapy direction. Initiate Physical Therapy intervention for pain management as needed, strengthening, bed mobility, transfers, gait, stairs, balance training, and use of assistive device. DISCHARGE RECOMMENDATIONS: Patient will benefit from [facility]p facility placement for continued skilled physical therapy services in order to progress mobility level, strength, and balance in preparation for a safe discharge to home. TREATMENT CODE/TIME: 9716 2 x 20 minutes, 82814 x 38 minutes beginning at 9:17 AM. Thank you for the opportunity to participate in the care of this patient. Richelle Wyatt PT, DPT, CLT [facility] [place], [place]
--- NOTE | 2020-07-03 10:31 | DI.US_ITS ---
APPROVED REPORT EXAM: Comprehensive 2D, Doppler, and color-flow Echocardiogram Patient Location: In-Patient Room/Bed: [address] Molder: Armida Cruz RDCS (AE) Indications: CVA Other Information Study Quality: Fair. Technically limited study due to inability to position patient, body habitus. Conclusion Left Ventricle : The left ventricle is normal size. The left ventricular systolic function is normal. The left ventricular ejection fraction is within the normal range. There is normal left ventricular wall thickness. There is normal LV segmental wall motion. The left ventricular diastolic function is normal. LVEF is 59%. Right Ventricle : The right ventricle is normal size. The right ventricular systolic function is norm al. The RVSP is 24.3mmHg. Atria : The left atrium size is normal. The right atrium size is normal. Valves: There are no hemodynamically significant valvular lesions. Great Vessels : The aortic root is normal in size. The ascending aorta is mild to moderately dilated. Aortic arch is not visualized. IVC is normal in size and collapses >50% with inspiration. Please see remainder of study for further details. Wall motion Left Ventricle The left ventricle is normal size. The left ventricular systolic function is normal. The left ventric ular ejection fraction is within the normal range. There is normal left ventricular wall thickness. T here is normal LV segmental wall motion. The left ventricular diastolic function is normal. There is no ventricular septal defect visualized. LVEF is 59%. Right Ventricle The right ventricle is normal size. The right ventricular systolic function is normal. The RVSP is 24 .3mmHg. Atria The left atrium size is normal. The right atrium size is normal. The interatrial septum is intact wit h no evidence for an atrial septal defect. Aortic Valve The aortic valve is normal in structure. Aortic valve is trileaflet. There is no aortic valvular sten osis. Trace aortic regurgitation. Mitral Valve The mitral valve is normal in structure. No evidence of mitral valve stenosis. Trace to mild mitral r egurgitation. Tricuspid Valve The tricuspid valve is normal in structure. There is no tricuspid valve stenosis. Trace tricuspid reg urgitation. Pulmonic Valve Pulmonic valve is not well visualized. There is no pulmonic valvular stenosis. Trace pulmonic regurgi tation. Great Vessels The aortic root is normal in size. The ascending aorta is mild to moderately dilated. Aortic arch is not visualized. IVC is normal in size and collapses >50% with inspiration. Pericardium There is no pericardial effusion. 2D Dimensions IVSD d PLAX 1.04 cm F: 0.6-1.0 LV Vol A2C d MOD 102.0 mL LVPW d PLAX 1.04 cm F: 0.6 - 1.0 LV Vol A4C d MOD 91.1 mL LVID d PLAX 4.96 cm F: 3.8 - 5.2 LA vol/ BSA A2C s A-L 17.9 mL/m2 LVDs 3.35 cm F: 2.2 - 3.5 LA vol/ BSA A4C s A-L 38.3 mL/m2 Ao Root d 3.33 cm F: 2.7 - 3.3 LA Vol/ BSA Biplane s A-L 28.3 mL/m2 RA Area A4C 13.84 cm2 LA Area A4C s MOD 23.36 cm2 RA Vol/ BSA A4C s A-L 17.6 mL/m2 LA Area A2C s MOD 14.75 cm2 Ao Asc Diam d 3.69 cm F: 2.3 - 3.1 LV EF A4C MOD 58.5 % LV EF Teichholz 59.8 % LV EF A2C MOD 60.5 % LVEF (Angel's) 58.52 % F: 54 - 74 LV EF Biplane MOD 58.5 % LV Volume 73.86 mL F: 46 - 106 SV 56.22 mL LV Volume Index 39.70 mL/m2 F: 29 - 61 SV Index 30.23 mL/m2 LV Vol Biplane MOD 96.1 mL FS 31.90 % M-Mode TAPSE 2.57 cm (M/F) >1.7 LV Diastology MV E' medial 0.092 (>0.07 m/s) E/A Ratio 1.0 LV E/e MED 10.15 (<14) MV E Vmax 0.94 (0.4-1.3 m/s) MV E' lateral 0.120 (>0.1 m/s) MV A Vmax 0.90 (0.4-1.3 m/s) LV E/e LAT 7.80 (<14) MV E/A Ratio 1.00 MV E/E' medial 10.20 MV E/E' lateral 7.84 Aortic Valve LVOT Area 3.50 cm2 AoV Area Vmax 3.26 cm2 LVOT Vmax 1.27 m/s AoV Area/ BSA (Vmax) 1.75 cm2/m2 LVOT Mean Bear. 0.74 m/s ZOHREH Mean Bear. 3.13 cm2 LVOT Peak Grad 6.4 mmHg ZOHREH Mean Bear. Index 1.68 cm2/m2 LVOT Mean Grad 2.7 mmHg LVOT VTI 0.287 m LVOT Diam s 2.10 cm AoV Vmax 1.36 m/s Velocity Ratio 0.93 AoV Mean Bera. 0.82 m/s AoV Peak Grad 7.4 mmHg LVOT SV 100.46 mL AoV Mean Grad 3.2 mmHg AoV VTI 0.264 m AoV Area VTI 3.80 cm2 AoV Area/ BSA (VTI) 2.05 cm/m2 Mitral Valve MV DT 239 (160-240 msec) MV PHT 69 msec MV Area PHT 3.17 cm2 Pulmonary Valve PV Vmax 1.11 (0.5-1.5 m/s) RVOT Peak Gr. 3.16 mmHg PV Peak Grad 5.0 mmHg RVOT Mean Gr. 1.70 mmHg PV Mean Grad 2.8 mmHg RVOT VTI 0.202 m PV VTI 0.260 m RVOT Vmax 0.89 m/s Tricuspid Valve TR Peak Grad 21.2 mmHg TR Vmax 2.31 m/s RA Pressure 3.00 mmHg RVSP (TR) 24.3 mmHg
[2020-07-03 10:32] LABS: COVID-19 PCR Negative (Negative)
[2020-07-03 11:08] LABS: Anion Gap 12.9 mmol/L (3-11); BUN 12 mg/dL (7-18); CO2 21.1 mmol/L (21.0-32.0); CREATININE 0.7 mg/dL (0.55-1.02); Calcium 8.7 mg/dL (8.5-10.1); Chloride 104 mmol/L (98-107); Glucose 92 mg/dL (74-106); Potassium 3.9 mmol/L (3.5-5.1); Sodium 138 mmol/L (136-145)
--- NOTE | 2020-07-03 11:57 | INITIAL_ITS ---
- If Service Date Differs Date of service: 07/03/20 Time of Service: 11:57 Care Management Initial Assess REASON FOR HOSPITALIZATION:: CVA PAST MEDICAL HISTORY/PAST SURGICAL HISTORY:: Medical History (Updated 07/03/20 @ 07:23 by Mark Anand). Colitis. Smoker. TIA (transient ischemic attack) PREVIOUS FUNCTIONAL STATUS/SOCIAL/FAMILY SUPPORTS:: Hyun spends her miller in [place] with her daughter Shiela and her elias in [place] with her daughter Karena or her niece Jami. Hyun is independent at baseline and does not require the use of any assistive devices. She has been twice and is now . CURRENT FUNCTIONAL STATUS:: Hyun was sitting up in a chair when CM met with her. The provider was with her and was informing her that her MRI indicated that she has had several recent small strokes. It is unclear exactly when those occurred as Hyun does not recall any new symptoms in the past week or so. She stated that the weakness in her hand occurred when she fell in [place], about a month ago. Dr. Grubbs explained that she had sent the MRI to [facility] to be reviewed and that it was possible that a transfer would be recommended. A short time later it was confirmed that Hyun would be transferred to [facility] today. CM contacted her niece Jami to inform her of the transfer. ADVANCE DIRECTIVES:: does not have and is not interested at this time. Has patient been provided with info about the portal/API?: No Did the patient sign up for the portal?: No (not local) CODE STATUS:: Full Code INSURANCE COVERAGE / FINANCIAL ISSUES:: [facility] Medicare replacement CURRENT HOME/COMMUNITY SERVICES/EQUIPMENT:: none PRIMARY CARE PHYSICIAN:: none local - is not from this area POTENTIAL DISCHARGE NEEDS:: Per [facility] PATIENT/FAMILY EDUCATION NEEDS:: to be determined by [facility] team TRANSPORTATION:: via private vehicle with nohelia PLAN:: Hyun will be transferred to [facility] later today when a bed becomes available. She will transport vis ambulance coordinated by nursing communications and signals supervisor.
[2020-07-03] MEDS: Nicotine 14 MG/24 HR PATCH TD (12:33)
[2020-07-03 13:09] LABS: HCT 25.7 % (36.0-46.0); HGB 7.7 g/dL (11.2-15.7)
[2020-07-03] MEDS: Clopidogrel 75 MG TAB PO (16:50)
--- NOTE | 2020-07-03 17:03 | DSE_ITS ---
Date of service: 07/03/20 Time of Service: 17:04 DS: Diagnosis Discharge Diagnosis (1) CVA (cerebral vascular accident): Status: Acute (2) Atheroembolism: Status: Acute (3) Anemia: Status: Chronic (4) Peripheral arterial disease: Status: Acute (5) Colitis: Status: Chronic Asessment and Plan: nonspecific (6) Smoker: Status: Chronic (7) Atherosclerosis: Status: Chronic (8) Superior mesenteric artery stenosis: Status: Chronic Asessment and Plan: asymptomatic (9) Dilated aortic root: Status: Chronic (10) COVID-19 ruled out by laboratory testing: Status: Ruled-out Discharge Plan Disposition Patient Disposition: [facility] Condition: Serious Discharge Details Reason For Visit: CVA; ANEMIA Admit Date/Time: 07/03/20 00:50 Admit Provider: Mark Anand Attending Provider: Mark Anand [facility] Care [facility] Hospital Course: Ms Vicente is a 75 year old female with PMHx of tobacco abuse, as well as prior h/o TIA, per vivek review, B12 deficiency anemia, and colitis (?etiology) on oral budesonide therapy who was brought to [facility] ED by her daughter and admitted to the hospitalist service on 07/03/20 for LUE weakness with CT brain suggesting acute right frontal and occipital infarcts. Additionally, she was found to be anemic with hemoglobin of 4.8 and hemoccult negative stools. The patient is not able to provide a clear story. She denies ever seeing blood in her stool or having black stools. She had recently traveled from [place] where about one month ago she had a reportedly mechanical fall resulting in laceration of her left knee. THe patient states that 4-5 days after being initiated on doxycycline for this laceration, she started to note blurred/double vision in her right eye. She does not know when her LUE weakness started. Her story has changed from at the time of the fall to 2-3 days ago to one week ago. Her workup in our facility consisted of CT/CTA head/neck (no intracranial stenosis, calcific plaque in L internal carotid artery with less than 50% stenosis; above findings on CT), MRI brain showing acute to subacute infarcts peripherally in the right frontal, temporal, parietal, and occipital lobes. She has not had any arrhythmic events on tele and has remained in NSR. Her echo reveals a preserved LVEF (59%), normal size of the atria, no significant valvular lesions, RVSP of 24.3 mmHg. Her ascending aorta is mildly to moderately dilated. CTA chest/abdomen/pelvis was obtained because of differences in BPs in her right and left arm. This showed severe atherosclerosis in her abdomen, including a right common iliac artery occlusion as well as severe stenosis of the proximal super mesenteric artery and proximal left renal artery. The patient was initiated on aspirin in the ED and, with recommendation of Dr Chavez of [facility] Neurology, plavix was also added without the initial bolus. The patient was initiated on atorvastatin [address] Chavez, the patient is likely suffering from atheroembolic CVAs and would benefit from transfer to [facility] rology service. The patient is agreeable to this. We feel she might also benefit from a vascular surgery consultation. As far as her acute on chronic microcytic anemia, she was hemoccult negative. Unfortunately, anemia studies were done after the patient received a transfusion of 2 units of pRBCs and are not helpful. Intermittent GI bleeding is strongly suspected, especially with the patient's history of colitis. We are unable to perform endoscopy on this patient in our facility due to her acute CVAs and her being a high anesthesia risk, but it may be required if she develops clinically significant bleeding on aspirin and plavix. The patient is accepted in transfer by Dr Chavez, whose assistance is greatly appreciated. She is stable for transfer. Care for patient as well as completion of her discharge summary took 60 minutes on the day of transfer. For list of active inpatient medications, please, see MAR. The list below reflects medications taken prior to admission. Home Meds and New Rx's Prescriptions: No Action diphenhydramine HCl [Benadryl] 25 mg Capsule 25 mg PO DAILY RF: 0 budesonide 3 mg Capsule,Delayed,Extend.Release 3 mg PO DAILY RF: 0 cyanocobalamin (vitamin B-12) [Vitamin B-12] 1,000 mcg Tablet 1,000 mcg PO DAILY RF: 0 Discharge Instructions Stand Alone Forms: Nursing Discharge Form Activity:: Activity as Tolerated Diet:: heart healthy Discharge Orders Discharge Orders: Discharge Order (Routine); Ordered 07/03/20 Ordered By: Eileen Grubbs DS: Summary Time Spent with Patient providing and/or coordinating discharge services: Greater than 30 minutes Status at Discharge Functional status at discharge: uses cane/walker Overall status at discharge: patient is not back to baseline Mental Status: mental status grossly normal Speech and Movement: speech and movement normal and other (LUE weakness) Mood: congruent mood Affect: normal affect Exam Narrative Exam Narrative: General: pleasant middle-aged female, who is forgetful, though she is A&Ox3. Wearing a sling on her LUE. LUE weakness. LUE weakness. No visual field cut. 5/5 strength in BLEs, though there is LLE is slightly weaker. CN II-XII intact. HEENT: EOMI, MMM Heart: RRR, no m/r/g Lungs: slight rhonchi which clear with cough Abdomen: soft, nontender, nondistended Extremities: no edema BLEs; L knee incision healing well, does not appear infected; LUE in a sling Psych Mental Status: mental status grossly normal Speech and Movement: speech and movement normal and other (LUE weakness) Mood: congruent mood Affect: normal affect DS: Data Vitals/I&O Vitals and I&O: Vital Signs Temperature 36.5 C 07/03/20 14:50 Temperature Source Temporal Artery Scan 07/03/20 14:50 Pulse 64 07/03/20 14:50 Pulse Rhythm Regular 07/03/20 08:25 Pulse 84 07/03/20 01:42 Respiratory Rate 17 07/03/20 14:50 Respiratory Effort Non-Labored 07/03/20 08:25 Respiratory Depth Normal 07/03/20 08:25 Respiratory Pattern Normal 07/03/20 08:25 Blood Pressure 163/72 H 07/03/20 14:50 Blood Pressure Mean 84 07/03/20 01:42 Blood Pressure Position Supine 07/02/20 21:55 Pulse Oximetry 97 07/03/20 14:50 Oxygen Delivery Method Room Air 07/03/20 14:50 Oxygen Flow Rate 0 07/03/20 14:50 Pain Level 0 07/03/20 14:50 Intake & Output 07/02/20 07/03/20 07/03/20 23:59 11:59 23:59 Intake Total 1140 / 1140 Output Total 700 / 700 Balance 440 / 440 Weight 78.471 kg 78.6 kg Intake: IV 10 / 10 Oral 420 / 420 Blood Product 700 / 700 Rbc Leuko Reduced Unit 350 / 350 [id number] Rbc Leuko Reduced Unit 350 / 350 [id number] Other 20 / 20 Rbc Leuko Reduced Unit 20 / 20 [id number] Output: Urine 700 / 700 Other: Urine Color Light Mae Urine Appearance Clear Urine Odor None Voiding Methods Bedside Commode Data Completed and Pending Completed studies during hospitalization [Text1]: CT/CTA head/neck: 1. Normal CTA examination of the [place] of [place]. Anatomic variant of bilateral hypoplastic P1 segments of the posterior cerebral arteries. 2. Head CT shows patchy areas of decreased attenuation in the right frontal and occipital regions which may represent acute infarct.. 3. Calcific plaque at the proximal left internal carotid artery causing less than 50 percent stenosis.? No evidence of dissection. MRI brain: Findings consistent with acute to subacute infarcts peripherally in the right frontal, temporal parietal and occipital lobes.? Echo (TTE): Left Ventricle : The left ventricle is normal size. The left ventricular systolic function is normal. The left ventricular ejection fraction is within the normal range. There is normal left ventricular wall thickness. There is normal LV segmental wall motion. The left ventricular diastolic function is normal. LVEF is 59%. Right Ventricle : The right ventricle is normal size. The right ventricular systolic function is normal. The RVSP is 24.3mmHg. Atria : The left atrium size is normal. The right atrium size is normal. Valves: There are no hemodynamically significant valvular lesions. Great Vessels : The aortic root is normal in size. The ascending aorta is mild to moderately dilated. Aortic arch is not visualized. IVC is normal in size and collapses >50% with inspiration. Please see remainder of study for further details. CTA chest/abdomen/pelvis: Severe atherosclerotic changes, greater in the abdomen. There is probable occlusion of the right common iliac artery. There is severe stenosis of the proximal superior mesenteric artery and proximal left renal artery. Labs on day of discharge: Labs from last 24 hours 07/03/20 07/03/20 07/03/20 13:00 06:10 06:10 WBC RBC Hgb 7.7 L Hct 25.7 L MCV MCH MCHC RDW Plt Count MPV Immature Gran % Neutrophils % Lymphocytes % Monocytes % Eosinophils % Basophils % Nucleated RBC % Absolute Neutrophils Absolute Lymphocytes Absolute Monocytes Absolute Eosinophils Absolute Basophils RBC Morphology Hypochromasia Anisocytosis Microcytosis PT INR Sodium 138 Potassium 3.9 Chloride 104 Carbon Dioxide 21.1 Anion Gap 12.9 H BUN 12 Creatinine 0.7 Estimated GFR/1.73 m2 >= 60.00 Glucose 92 Hemoglobin A1c 5.3 Calcium 8.7 Iron TIBC Transferrin % Sat Total Bilirubin AST ALT Alkaline Phosphatase Troponin I Total Protein Albumin Triglycerides 51 Total Cholesterol 115 LDL Cholesterol, Calc 71 HDL Cholesterol 34 L Vitamin B12 1681 H Urine Color Urine Clarity Urine pH Ur Specific Wilson Urine Protein Urine Ketones Urine Blood Urine Nitrite Urine Bilirubin Urine Urobilinogen Ur Leukocyte Esterase Urine Glucose COVID-19 Source SARS-CoV-2 (PCR) Patient ABO/Rh Antibody Screen Crossmatch 07/03/20 07/03/20 07/03/20 06:10 06:10 00:50 WBC RBC Hgb 7.1 L D Hct 24.3 L D MCV MCH MCHC RDW Plt Count MPV Immature Gran % Neutrophils % Lymphocytes % Monocytes % Eosinophils % Basophils % Nucleated RBC % Absolute Neutrophils Absolute Lymphocytes Absolute Monocytes Absolute Eosinophils Absolute Basophils RBC Morphology Hypochromasia Anisocytosis Microcytosis PT INR Sodium Potassium Chloride Carbon Dioxide Anion Gap BUN Creatinine Estimated GFR/1.73 m2 Glucose Hemoglobin A1c Calcium Iron 52 TIBC 456 H Transferrin % Sat 11 L Total Bilirubin AST ALT Alkaline Phosphatase Troponin I Total Protein Albumin Triglycerides Total Cholesterol LDL Cholesterol, Calc HDL Cholesterol Vitamin B12 Urine Color Urine Clarity Urine pH Ur Specific Wilson Urine Protein Urine Ketones Urine Blood Urine Nitrite Urine Bilirubin Urine Urobilinogen Ur Leukocyte Esterase Urine Glucose COVID-19 Source Nasal/nares SARS-CoV-2 (PCR) Negative Patient ABO/Rh Antibody Screen Crossmatch 07/03/20 07/02/20 07/02/20 00:34 22:10 22:10 WBC RBC Hgb Hct MCV MCH MCHC RDW Plt Count MPV Immature Gran % Neutrophils % Lymphocytes % Monocytes % Eosinophils % Basophils % Nucleated RBC % Absolute Neutrophils Absolute Lymphocytes Absolute Monocytes Absolute Eosinophils Absolute Basophils RBC Morphology Hypochromasia Anisocytosis Microcytosis PT 10.2 INR 1.0 Sodium Potassium Chloride Carbon Dioxide Anion Gap BUN Creatinine Estimated GFR/1.73 m2 Glucose Hemoglobin A1c Calcium Iron TIBC Transferrin % Sat Total Bilirubin AST ALT Alkaline Phosphatase Troponin I Total Protein Albumin Triglycerides Total Cholesterol LDL Cholesterol, Calc HDL Cholesterol Vitamin B12 Urine Color Yellow Urine Clarity Clear Urine pH 6.0 Ur Specific Wilson 1.010 Urine Protein Negative Urine Ketones Negative Urine Blood Negative Urine Nitrite Negative Urine Bilirubin Negative Urine Urobilinogen 0.2 Ur Leukocyte Esterase Negative Urine Glucose Negative COVID-19 Source SARS-CoV-2 (PCR) Patient ABO/Rh A Positive Antibody Screen Negative Crossmatch See Detail 07/02/20 07/02/20 22:10 22:10 WBC 5.98 RBC 2.36 L Hgb 4.8 L* Hct 17.8 L* MCV 75.4 L MCH 20.3 L MCHC 27.0 L RDW 17.9 H Plt Count 273 MPV 9.8 Immature Gran % 0.7 Neutrophils % 65.5 Lymphocytes % 21.6 Monocytes % 10.0 Eosinophils % 1.7 Basophils % 0.5 Nucleated RBC % 1 Absolute Neutrophils 3.92 Absolute Lymphocytes 1.29 Absolute Monocytes 0.60 Absolute Eosinophils 0.10 Absolute Basophils 0.03 RBC Morphology See below Hypochromasia 3+ Anisocytosis 3+ Microcytosis 2+ PT INR Sodium 135 L Potassium 3.6 Chloride 100 Carbon Dioxide 22.0 Anion Gap 13.0 H BUN 14 Creatinine 0.9 Estimated GFR/1.73 m2 >= 60.00 Glucose 104 Hemoglobin A1c Calcium 8.9 Iron TIBC Transferrin % Sat Total Bilirubin 0.3 AST 22 ALT 15 Alkaline Phosphatase 58 Troponin I < 0.05 Total Protein 7.6 Albumin 3.5 Triglycerides Total Cholesterol LDL Cholesterol, Calc HDL Cholesterol Vitamin B12 Urine Color Urine Clarity Urine pH Ur Specific Wilson Urine Protein Urine Ketones Urine Blood Urine Nitrite Urine Bilirubin Urine Urobilinogen Ur Leukocyte Esterase Urine Glucose COVID-19 Source SARS-CoV-2 (PCR) Patient ABO/Rh Antibody Screen Crossmatch [facility] Medical History (Updated 07/03/20 @ 18:50 by Eileen Grubbs MD) Colitis Smoker TIA (transient ischemic attack) Social History (Updated 07/03/20 @ 07:09 by Mark Anand) Smoking/Tobacco Use Status: Current every day Tobacco Type: cigarettes Smoking risk assessment performed?: Yes Alcohol Intake: current Alcohol Intake frequency: a few times a month Substance use type: marijuana Details: CBD, THC oil Do you feel safe at home: Yes Additional Social history: Lives between [facility] and daughter's
--- NOTE | 2020-07-07 08:18 | PT.INDS ---
Date of service: 07/07/20 Time of Service: 08:18 PT Notes Visit Reasons: CVA; ANEMIA Physical Therapy Inpatient Discharge Summary Date: 07/07/2020 Date of service: 07/03/2020 only This is a clinical summary of care provided on the duration of dates listed above. No charge was made in the completion of this documentation. Referring Doctor: Mark Anand MD PT Orders: PT CONSULT: Safety consult for discharge.? Acute CVA, left-sided weakness. Precautions: Fall. Standard. Activity as tolerated. Patient Profile/Admitting Diagnosis: Hyun is a 75-year-old female who presented to the ED on 07/02/2020 with 3 days worth of increasing weakness accompanied by facial weakness.? Patient is diagnosed with cerebrovascular accident, anemia, peripheral arterial disease, tobacco use, and colitis. PMHX: Medical History?(Updated 07/03/20 @ 07:23 by Mark Anand) Colitis Smoker TIA (transient ischemic attack) Social History/Home Situation: Lives with niece in [place] in the summer and with daughter in [place] in the wintertime.? Has 3 steps to enter with 1 rail for both residences in [place] and [place].? Independent with the single-point cane for all mobility ADL performance, independent with all other aspects of ADLs prior to admission.? Still drives.? Smokes 1 pack of cigarettes per day. Equipment Owned/DME: [facility] Subjective: NT. See most recent [facility] notes. Objective: General Observation: NT. See most recent [facility] notes. Mental Status: NT. See most recent [facility] notes. Pain: NT. See most recent [facility] notes. ROM: Right Upper Extremity:? Shoulder Flexion . Shoulder abduction WFL. Shoulder ER/IR WFL. Elbow flexion WFL. Forearm pronation/supination WFL. Wrist flexion WFL. Opening and closing of hand WFL. Left Upper Extremity:? Shoulder Flexion up to 60 degrees. Shoulder abduction? up to 50 degrees. Shoulder ER/IR up to 20 degrees. Elbow flexion up to 45 degrees. Forearm supination to neutral only, pronation unable.? Wrist flexion absent. Opening and closing of hand absent. Right Lower Extremity: Hip flexion WFL. Hip abduction WFL. Hip ER/IR WFL. Knee flexion WFL. Knee extension. Ankle dorsiflexion/eversion WFL. Ankle plantarflexion/inversion WFL. Left Lower Extremity: Hip flexion WFL. Hip abduction WFL. Hip ER/IR WFL. Knee flexion WFL. Knee extension. Ankle dorsiflexion WFL. Ankle plantarflexion WFL. Strength: Right Upper Extremity: Shoulder flexors 4-/5. Shoulder abductors 4-/5. Shoulder ER 4-/5. Shoulder IR 4-/5. Forearm pronators 4/5. Forearm supinators 4/5. Elbow flexors 4/5. Elbow extensors 4/5. Severity Of Illness Coordinator strong. Left Upper Extremity: Shoulder flexors 3-/5. Shoulder abductors 3-/5. Shoulder ER 3-/5. Shoulder IR 3-/5. Forearm pronators 3-/5. Forearm supinators 1/5. Elbow flexors 3-/5. Elbow extensors 3-/5. Severity Of Illness Coordinator absent. Right Lower Extremity: Hip flexors 4-/5. Hip abductors 4-/5. Hip external rotators 4-/5. HIp internal rotators 4-/5. Knee flexors 5/5. Knee extensors 5/5. Ankle dorsiflexors/evertors 5/5. Ankle plantarflexors/invertors 5/5. Left Lower Extremity: Hip flexors 5/5. Hip abductors 5/5. Hip external rotators 5/5. HIp internal rotators 5/5. Knee flexors 4-/5. Knee extensors 4-/5. Ankle dorsiflexors/evertors 4-/5. Ankle plantarflexors/invertors 4-/5. Bed Mobility/Transfers: Rolling contact-guard assist Supine to sit contact-guard assist with HOB at 45 degrees Sit to supine contact-guard assist Sit to stand minimal assist Stand to sit contact-guard assist Bed to bedside commode contact-guard assist Bedside commode to bed contact-guard assist Gait: Distance of 50 feet +40 feet feet requiring contact-guard assist. Liss decreased. Step height decreased on the left side. Step length decreased on the left side.? Increase trunk lean to the left and forward.? Verbal cues were given for hemiwalker management and directional changes.? Denies headache, dizziness, and chest pain throughout. Balance: Static Sitting: Normal Dynamic Sitting: Normal Static Standing: Fair Dynamic Standing: Fair Assessment: Hyun was transported to [facility] for immediate medical attention on 07/03/2020. Hyun continues to demonstrate left sided hemiparesis with left upper extremity more affected than the left lower extremity affecting her ability to safely perform mobility ADL performance and will require hemiwalker and assistance of 1 caregiver to reduce fall risk.? Sensation decreased from the wrist down to the fingers on the left side.? Patient will benefit from fdc facility placement for continued skilled physical therapy services in order to progress mobility level, strength, and balance in preparation for a safe discharge to home. Patient continues to present with clinical signs and symptoms consistent with current/admitting diagnoses that have resulted to mobility limitations, gait instability, generalized weakness, and impairment of motor control as demonstrated by the following impairment level findings: 1.? Decreased strength to left UEs LE major muscle groups 2.? Impaired standing balance 3.? Impaired activity tolerance 4.? Limitation of joint range of motion in left UEs/LE 5.? Decreased grasp on the left side Impairments are continuing to contribute to the following functional limitations: 1.? Dependent bed mobility skills 2.? Increased dependence with transfers 3.? Inability to safely ambulate without assistive device and physical assistance 4.? Increase completion time for mobility ADL performance 5.? Increased fall risk 6.? Inability to negotiate steps alone safely 7.? Inability to return to prior living environment at this time Goals: Goals X1 week 1. Supine-Sit independent NOT MET 2. Sit-Supine independent NOT MET 3. Sit-Stand independent NOT MET 4. Stand-Sit independent NOT MET 5. Bed-Chair independent NOT MET 6. Chair-Bed independent NOT MET 7. Independent gait on level surface with use of single-point cane for at least 300 feet without report of pain nor dyspnea NOT MET 8. Independent stair negotiation while holding onto 1 rail for at least 3 steps without report of pain nor dyspnea 9. Independent with home exercise program NOT MET 10. Good static and dynamic standing balance/tolerance NOT MET DISCHARGE RECOMMENDATIONS: Patient will benefit from fdc facility placement for continued skilled physical therapy services in order to progress mobility level, strength, and balance in preparation for a safe discharge to home. TREATMENT CODE/TIME: MI Thank you for the opportunity to participate in the care of this patient. Richelle Wyatt PT, DPT, CLT [facility] [place], [place]
== END 2020-07-03 19:45 | disposition short-term general hospital (02) | DRG 65 ==
LOC: ER 07-03 01:00 → MS 07-03 02:02
PROVIDERS: Internal Medicine; Student in an Organized Health Care Education/Training Program; Admitting Provider Family Medicine; Emergency Provider Emergency Medicine; Visit Provider Family Medicine
DX: I63.40 Cerebral infarction due to embolism of unspecified cerebral artery (principal); K55.1 Chronic vascular disorders of intestine; G81.94 Hemiplegia, unspecified affecting left nondominant side; D64.9 Anemia, unspecified; I73.9 Peripheral vascular disease, unspecified; F17.210 Nicotine dependence, cigarettes, uncomplicated; Z20.822 Contact with and (suspected) exposure to COVID-19; I77.819 Aortic ectasia, unspecified site; K52.9 Noninfective gastroenteritis and colitis, unspecified; Z86.73 Personal history of transient ischemic attack (TIA), and cerebral infarction without residual deficits; D51.9 Vitamin B12 deficiency anemia, unspecified; I70.291 Other atherosclerosis of native arteries of extremities, right leg
CPT/HCPCS: 36415; 36416; 36430; 70496; 70498; 71275; 74175; 80048; 80053; 80061; 82962; 86850; 86900; 86901; 86920; 87635; 93005; 93306; 97110; 97162; 97530; 99291; 70551; 81003; 82607; 83036; 83540; 83550; 84484; 85014; 85018; 85025; 85610; 93010; 99239; J3490; P9016

== ENCOUNTER 2020-09-08 14:20 | Outpatient (REF) | payer OTHER, SELFPAY ==
[2020-09-08 20:17] LABS: HCT 30.2 % (36.0-46.0); HGB 9.1 g/dL (11.2-15.7); MCH 28.3 pg (27.0-33.0); MCHC 30.1 % (32.0-36.0); MCV 94.1 fL (80-95); MPV 11.5 fL (8.0-11.0); Platelet Count 290 10^3/uL (130-400); RBC 3.21 10^6/uL (3.93-5.22); RDW 19.7 % (11.7-14.6); RDW-SD 62.7 fL; WBC 5.68 10^3/uL (4.4-10.8)
[2020-09-08 20:55] LABS: ALT 58 U/L (14-59); AST 51 U/L (15-37); Albumin 3.4 g/dL (3.4-5.0); Alkaline Phosphatase 210 U/L (46-116); Bilirubin, Direct 0.1 mg/dL (0.0-0.2); Bilirubin, Total 0.2 mg/dL (0.2-1.0)
[2020-09-08 23:45] LABS: Iron 49 ug/dL (50-170); Total Iron Binding Capacity 383 ug/dL (250-450); Transferrin Sat 13 % (15-50)
== END 2020-09-08 14:21 | disposition home or self-care (01) ==
LOC: LBN 14:20
PROVIDERS: Visit Provider Family Medicine
DX: D50.0 Iron deficiency anemia secondary to blood loss (chronic) (principal); R74.01 Elevation of levels of liver transaminase levels; E61.1 Iron deficiency
CPT/HCPCS: 80076; 85027; 83540; 83550

== ENCOUNTER 2020-09-15 13:34 | Outpatient (REF) | payer OTHER, SELFPAY ==
[2020-09-15 21:32] LABS: HCT 30.3 % (36.0-46.0); HGB 9.1 g/dL (11.2-15.7); MCH 29.2 pg (27.0-33.0); MCV 97.1 fL (80-95); MPV 11.6 fL (8.0-11.0); Platelet Count 304 10^3/uL (130-400); RBC 3.12 10^6/uL (3.93-5.22); RDW 21.1 % (11.7-14.6); WBC 6.54 10^3/uL (4.4-10.8)
== END 2020-09-15 13:35 | disposition home or self-care (01) ==
LOC: LBN 13:34
PROVIDERS: Visit Provider Family Medicine
DX: D50.0 Iron deficiency anemia secondary to blood loss (chronic) (principal)
CPT/HCPCS: 85027

== ENCOUNTER 2020-09-22 14:33 | Outpatient (REF) | payer OTHER, SELFPAY ==
[2020-09-22 19:19] LABS: HCT 28.3 % (36.0-46.0); HGB 8.6 g/dL (11.2-15.7); MCH 29.1 pg (27.0-33.0); MCHC 30.4 % (32.0-36.0); MCV 95.6 fL (80-95); MPV 10.9 fL (8.0-11.0); Platelet Count 227 10^3/uL (130-400); RBC 2.96 10^6/uL (3.93-5.22); RDW 19.7 % (11.7-14.6); WBC 5.14 10^3/uL (4.4-10.8)
== END 2020-09-22 14:34 | disposition home or self-care (01) ==
LOC: LBN 14:33
PROVIDERS: Visit Provider Family Medicine
DX: D50.0 Iron deficiency anemia secondary to blood loss (chronic) (principal)
CPT/HCPCS: 85027

== ENCOUNTER 2020-09-29 14:15 | Outpatient (REF) | payer OTHER, SELFPAY ==
[2020-09-29 21:46] LABS: HCT 26.5 % (36.0-46.0); HGB 8.1 g/dL (11.2-15.7); MCH 29.5 pg (27.0-33.0); MCHC 30.6 % (32.0-36.0); MCV 96.4 fL (80-95); MPV 11.2 fL (8.0-11.0); Platelet Count 225 10^3/uL (130-400); RBC 2.75 10^6/uL (3.93-5.22); RDW 18.3 % (11.7-14.6); RDW-SD 64.3 fL; WBC 4.57 10^3/uL (4.4-10.8)
== END 2020-09-29 14:16 | disposition home or self-care (01) ==
LOC: NCHCN 14:15
PROVIDERS: Visit Provider Family Medicine
DX: D50.0 Iron deficiency anemia secondary to blood loss (chronic) (principal)
CPT/HCPCS: 85027